=== PATIENT | male | born 1995 | race African-American/Black ===

== ENCOUNTER 2016-10-09 18:56 | Emergency (ER) | payer OTHER ==
[2016-10-09 19:02] VITALS: BP 128/73; PULSE 65; TEMP 98; BMI 23.7
[2016-10-09] MEDS ORDERED: traMADol HCL 50 MG TABLET PO ONE (19:35)
[2016-10-09] MEDS ORDERED: traMADol HCL 50 MG TABLET ONE (19:37)
--- NOTE | 2016-10-09 19:47 | PDOC ---
History of Present Illness - General Chief Complaint: Pain Stated Complaint: TOOTHACHE Time Seen by Provider: 10/09/16 19:15 History Source: Patient - History of Present Illness Associated Symptoms: denies: fever/chills Past History - Past Medical History Allergies/Adverse Reactions: Allergies Allergy/AdvReac Type Severity Reaction Status Date / Time No Known Allergies Allergy Verified 10/09/16 18:59 Home Medications: Ambulatory Orders No Home Medications 0 dose .ROUTE UTDICT 01/17/13 Clindamycin [Cleocin -] 300 mg PO Q6HPO #28 capsule 10/09/16 Tramadol HCl 50 mg PO Q6H #15 tablet MDD 200 mg 10/09/16 Other medical history: none - Psycho/Social/Smoking Cessation Hx Anxiety: No Suicidal Ideation: No Smoking Status: Yes Smoking History: Current every day smoker Have you smoked in the past 12 months: Yes Number of Cigarettes Smoked Daily: 6 Information on smoking cessation initiated: Yes 'Breaking Loose' booklet given: 10/09/16 Hx Alcohol Use: No Drug/Substance Use Hx: Yes (kim) Substance Use Type: Alcohol, Marijuana Review of Systems - Review of Systems Constitutional: No: Chills, Fever HEENTM: Yes: Dental Problems *Physical Exam - Vital Signs Last Vital Signs Temp Pulse Resp BP Pulse Ox 98.0 F 65 18 128/73 100 10/09/16 19:00 10/09/16 19:00 10/09/16 19:00 10/09/16 19:00 10/09/16 19:00 - Physical Exam General Appearance: Yes: Appropriately Dressed. No: Apparent Distress HEENT: positive: Normal Voice, Other (large cavity to R lower 2nd molar w/ minimal gum swelling/erythema, no facial swellign or discharge) Neck: positive: Supple. negative: Lymphadenopathy (R), Lymphadenopathy (L) Integumentary: positive: Dry, Warm Neurologic: positive: Fully Oriented, Alert, Normal Mood/Affect Medical Decision Making - Medical Decision Making 10/09/16 20:02 21-year-old male, no significant history, states he was diagnosed with dental infection approximately 3 weeks ago after he presented to his dentist with pain to right lower 2nd molar. States he was given abx (does not remember name) and pain meds but admits that he did not complete antibiotics because he was feeling better until last night when pain returned. No facial swelling, fever or chills. Patient well-appearing and in no apparent distress with large cavity to affected tooth w/ minimal gum swelling and erythema. No evidence of dental abscess. Will dc with pain medication and another course of antibiotics with instructions for patient to complete entire course, despite how he is feeling. Patient aware that he will need to contact his dentist on Tuesday for follow-up *DC/Admit/Observation/Transfer Diagnosis at time of Disposition: Pain, dental, Dental cavity - Discharge Dispostion Disposition: HOME Condition at time of disposition: Good - Prescriptions Prescriptions: Clindamycin [Cleocin -] 300 mg PO Q6HPO #28 capsule Tramadol HCl 50 mg PO Q6H #15 tablet MDD 200 mg - Patient Instructions Printed Discharge Instructions: DI for Tooth Decay Additional Instructions: Please take medications as prescribed and follow-up with your dentist on Tuesday
== END 2016-10-09 19:50 | disposition home or self-care (01) ==
LOC: JER 18:56 → JERFT 18:56 → JER 19:50
DX: K02.9 Dental caries, unspecified (principal); F17.210 Nicotine dependence, cigarettes, uncomplicated
CPT/HCPCS: 99281-25